=== PATIENT | female | born 1995 | race Native Hawaiian/Other Pacific Islander ===

== ENCOUNTER → 2019-11-26 | Outpatient (CLI) | payer OTHER ==
--- NOTE | 2019-11-26 13:51 | Diagnostic Imaging Report ---
INDICATION: Positive TB test. EXAMINATION: PA chest at 12:53 PM. FINDINGS: The heart and mediastinum appear normal. The lungs are clear. There are no effusions or pneumothoraces. IMPRESSION: Negative chest. There is no radiographic evidence for tuberculosis. Dictated by: Dictated on workstation # [id number]
== END ==
LOC: RAD 12:31
PROVIDERS: ATTEND Nurse Practitioner Primary Care
DX: R76.8 Other specified abnormal immunological findings in serum (principal); Z22.7 Latent tuberculosis
CPT/HCPCS: 71045